=== PATIENT | male | born 1980 | race Caucasian/White ===

== ENCOUNTER 2018-12-08 14:55 | Emergency (ER) | payer BC ==
[2018-12-08 15:00] VITALS: BP 132/100
--- NOTE | 2018-12-08 16:42 | EDM.PDOC ---
ED HPI GENERAL MEDICAL PROBLEM - General Chief Complaint: Chest Pain Stated Complaint: [facility] Time Seen by Provider: 12/08/18 15:16 Source of Information: Reports: Patient, RN Notes Reviewed, Significant Other History Limitations: Reports: No Limitations - History of Present Illness INITIAL COMMENTS - FREE TEXT/NARRATIVE: Patient is a 38-year-old male who presents to the ED via [facility] for the evaluation of chest pain. The patient states that he was at home when he developed this chest pain. This developed suddenly at around 1:30 PM. Patient states he climbed up into the tractor when he had sat down and the tractor he immediately felt an intense pressure to his chest, he felt his heart racing, and developed some sweating with this. This lasted for around 10 minutes and then resolved. The patient states he's had this happen once to him before roughly 45 years ago but it only happened for mere seconds. Patient is not having any chest pain at the current ER visit, he states he just feels very fatigued. The patient states he was unable to appreciate a pulse in his neck very well at the time of the incident. He denies any sort of first-degree relative with early cardiac disease. He states that he felt dizzy with the episodes as well but did not pass out. He went to the [facility] for evaluation and was sent to the ER by ambulance for further evaluation. He has not had any cardiac workup prior to this. - Related Data Allergies Allergy/AdvReac Type Severity Reaction Status Date / Time erythromycin base Allergy Unknown Cannot Verified 12/08/18 15:00 [Erythromycin Base] Remember Home Meds: Home Meds . [No Known Home Meds] 12/24/15 [History] Past Medical History - Past Health History Medical/Surgical History: Denies Medical/Surgical History Social & Family History - Family History Family Medical History: Noncontributory - Tobacco Use Smoking Status *Q: Current Every Day Smoker Years of Tobacco use: 20 Packs/Tins Daily: 1 - Recreational Drug Use Recreational Drug Use: No ED ROS GENERAL - Review of Systems Review Of Systems: See Below Constitutional: Reports: Diaphoresis. Denies: Fever, Chills HEENT: Reports: No Symptoms Respiratory: Denies: Shortness of Breath Cardiovascular: Reports: Chest Pain (chest discomfort) Endocrine: Reports: No Symptoms GI/Abdominal: Denies: Abdominal Pain, Constipation, Diarrhea, Nausea, Vomiting Musculoskeletal: Reports: No Symptoms Skin: Reports: No Symptoms Neurological: Reports: Dizziness (with episode) Psychiatric: Reports: No Symptoms Hematologic/Lymphatic: Reports: No Symptoms Immunologic: Reports: No Symptoms ED EXAM, GENERAL - Physical Exam Exam: See Below Exam Limited By: No Limitations General Appearance: Alert, WD/WN, No Apparent Distress Eye Exam: Bilateral Eye: EOMI, Normal Inspection, PERRL Ears: Normal External Exam Nose: Normal Inspection Throat/Mouth: Normal Inspection, Normal Lips, Normal Teeth, Normal Gums, Normal Voice, No Airway Compromise Head: Atraumatic, Normocephalic Neck: Normal Inspection Respiratory/Chest: No Respiratory Distress, Lungs Clear, Normal Breath Sounds, No Accessory Muscle Use, Chest Non-Tender Cardiovascular: Normal Peripheral Pulses, Regular Rate, Rhythm, No Edema, No Murmur Peripheral Pulses: 3+: Radial (L), Radial (R) GI/Abdominal: Normal Bowel Sounds, Soft, Non-Tender, No Distention, No Mass Extremities: Normal Inspection, Normal Capillary Refill Neurological: Alert, Oriented, Normal Cognition, No Motor/Sensory Deficits Psychiatric: Normal Affect, Normal Mood Skin Exam: Warm, Dry, Intact, Normal Color, No Rash EKG INTERPRETATION EKG Date: 12/08/18 Time: 15:01 Rhythm: NSR Rate (Beats/Min): [address] [place]: Normal P-Wave: Present QRS: Normal ST-T: Normal QT: Normal Comparison: NA - No Prior EKG EKG Interpretation Comments: Reviewed with Dr. Iglesias. Course - Vital Signs Last Recorded V/S: Last Vital Signs Temp 98 F 12/08/18 14:56 Pulse 93 12/08/18 14:56 Resp 16 12/08/18 14:56 BP 132/100 H 12/08/18 14:56 Pulse Ox 96 12/08/18 14:56 - Orders/Labs/Meds Orders: Active Orders 24 hr Category Date Time Status EKG Documentation Completion [RC] ASDIRECTED Care 12/08/18 15:19 Active Chest 1V Frontal [CR] Stat Exams 12/08/18 15:55 Ordered EKG 12 Lead [EK] Stat Ther 12/08/18 15:19 Ordered Labs: Laboratory Tests 12/08/18 12/08/18 Range/Units 16:45 16:45 WBC 7.50 (4.23-9.07) K/mm3 RBC 5.20 (4.63-6.08) M/mm3 Hgb 15.6 (13.7-17.5) gm/L Hct 44.5 (40.1-51.0) % MCV 85.6 (79.0-92.2) fl MCH 30.0 (25.7-32.2) pg MCHC 35.1 (32.2-35.5) g/dl RDW Std Deviation 39.9 (35.1-43.9) fL Plt Count 216 (163-337) K/mm3 MPV 10.0 (9.4-12.3) fl Neut % (Auto) 72.6 H (34.0-67.9) % Lymph % (Auto) 14.7 L (21.8-53.1) % [place] % (Auto) 9.2 (5.3-12.2) % Eos % (Auto) 2.9 (0.8-7.0) Baso % (Auto) 0.5 (0.1-1.2) % Neut # (Auto) 5.44 H (1.78-5.38) K/mm3 Lymph # (Auto) 1.10 L (1.32-3.57) K/mm3 [place] # (Auto) 0.69 (0.30-0.82) K/mm3 Eos # (Auto) 0.22 (0.04-0.54) K/mm3 Baso # (Auto) 0.04 (0.01-0.08) K/mm3 Sodium 144 (136-145) mEq/L Potassium 4.0 (3.5-5.1) mEq/L Chloride 109 H (98-107) mEq/L Carbon Dioxide 25 (21-32) mEq/L Anion Gap 14.0 (5-15) BUN 14 (7-18) mg/dL Creatinine 1.1 (0.7-1.3) mg/dL Est Cr Clr Drug Dosing 113.98 mL/min Estimated GFR (MDRD) > 60 (>60) mL/min BUN/Creatinine Ratio 12.7 L (14-18) Glucose 139 H (74-106) mg/dL Calcium 9.1 (8.5-10.1) mg/dL Total Bilirubin 0.6 (0.2-1.0) mg/dL AST 18 (15-37) U/L ALT 34 (16-63) U/L Alkaline Phosphatase 70 (46-116) U/L Troponin I 0.042 (0.00-0.056) ng/mL Total Protein 6.9 (6.4-8.2) g/dl Albumin 3.6 (3.4-5.0) g/dl Globulin 3.3 gm/dL Albumin/Globulin Ratio 1.1 (1-2) - Re-Assessments/Exams Free Text/Narrative Re-Assessment/Exam: 12/08/18 16:00 Patient presents to the ED for the evaluation of sudden onset chest pain. Patient does not have any surgical chest pain at today's ER visit, his symptoms have resolved prior to arrival, did order EKG, CBC, CMP, troponin, and a chest x -ray for initial evaluation. We will likely send the patient home with a 48 hour Holter monitor and an outpatient stress test order and have him follow up with a provider of his choice at the [facility]. 12/08/18 17:30 Patient's labs have returned, his troponin is within normal limits but there was a bump, 0.042. As his initial EKGs sent from [facility] was done at 1245 this would essentially be a 3 hour troponin after the episode. I did discuss this with Dr. Iglesias, he states that there is no further workup needed in the ER and agrees that a Holter monitor and a stress test are appropriate. Departure - Departure Time of Disposition: 17:32 Disposition: Home, Self-Care 01 Condition: Fair Clinical Impression: Palpitations, Chest pain at rest Instructions: Exercise Stress Test, [id number], Nonspecific Chest Pain, Easy- to-Read Forms: ED Department Discharge Additional Instructions: You were evaluated in the ED today regarding your chest pain and palpitations. Your cardiac workup was within normal limits that today's ER visit. There were no acute ischemic changes noted on EKG and a troponin test was within normal limits. You have been given an outpatient order for a cardiac stress test and a 48 hour Holter monitor, our facility will call to schedule your stress test. Please follow up with Shilpi Jones or a provider of your choice at the [facility] for results and further evaluation should they deem it necessary. Please return to the ED if your symptoms should change or worsen. - My Orders Last 24 Hours: My Active Orders 12/08/18 15:19 EKG Documentation Completion [RC] ASDIRECTED EKG 12 Lead [EK] Stat 12/08/18 15:55 Chest 1V Frontal [CR] Stat - Assessment/Plan Last 24 Hours: My Active Orders 12/08/18 15:19 EKG Documentation Completion [RC] ASDIRECTED EKG 12 Lead [EK] Stat 12/08/18 15:55 Chest 1V Frontal [CR] Stat
--- NOTE | 2018-12-09 08:11 | CR ---
Chest: Portable view of the chest was obtained. Comparison: Prior chest x-ray of 02/11/14. Heart size and mediastinum are normal. Lungs are clear. Bony structures are grossly intact. Impression: 1. Nothing acute is seen on portable chest x-ray. Diagnostic code #1
== END 2018-12-08 17:55 | disposition home or self-care (01) ==
LOC: JD.ED 14:55
DX: R07.89 Other chest pain (principal); R00.2 Palpitations; F17.210 Nicotine dependence, cigarettes, uncomplicated; Z88.1 Allergy status to other antibiotic agents
CPT/HCPCS: 36415; 71045; 71045-26; 80053; 84484; 85025; 93005; 93010; 93225; 93226; 99285; 99285-25

== ENCOUNTER 2021-05-27 10:02 | Emergency (ER) | payer BC ==
[2021-05-27 11:06] VITALS: BP 125/75; PULSE 70
[2021-05-27] MEDS ORDERED: cefTRIAXone 1 GM, Lidocaine 1% 2.1 ML IM ONE ×2 (11:16)
[2021-05-27] MEDS ORDERED: Diphtheria,Pertussis(Acell),Tetanus Vaccine 0.5 ML Syringe IM ONE (11:16)
== END 2021-05-27 11:45 | disposition home or self-care (01) ==
LOC: JD.ED 10:02
DX: S61.432A Puncture wound without foreign body of left hand, initial encounter (principal); Z88.1 Allergy status to other antibiotic agents; Z23 Encounter for immunization; W26.8XXA Contact with other sharp object(s), not elsewhere classified, initial encounter; Y99.0 Civilian activity done for income or pay
CPT/HCPCS: 90471; 90715; 96372; 99282; J0696